=== PATIENT | female | born 1980 | race African-American/Black ===

== ENCOUNTER 2024-08-21 18:42 | Emergency (ER) | payer MEDICAID ==
[~2024-08-21] VITALS: Ht 177.8 cm; Wt 82.0 kg
[2024-08-21 18:44] VITALS: O2SAT 100
[2024-08-21 19:18] VITALS: BP 131/90; TEMP 38.4
[2024-08-21] MEDS ORDERED: METHYLPREDNISOLONE 40MG/ML INJ IV ONE (21:45)
[2024-08-21] MEDS ORDERED: METHYLPREDNISOLONE SOD SUCC 125MG/2ML (ACT-O-VIAL) IV NR (21:45)
[2024-08-21 23:43] VITALS: PULSE 123; RESP 18; O2SAT 98
[2024-08-21] MEDS: IPRATROPIUM/ALBUTEROL 0.5-3(2.5)MG/3ML NEB HHN ONE (23:43)
[2024-08-22] MEDS: ACETAMINOPHEN 500MG TABLET PO ONE
[2024-08-22] MEDS ORDERED: PRED10TA23 MT (00:02)
[2024-08-22] MEDS: METHYLPREDNISOLONE SOD SUCC 125MG/2ML (ACT-O-VIAL) IM NR (00:45)
[2024-08-22] MEDS: ACETAMINOPHEN 500MG TABLET PO NR (00:45)
== END 2024-08-22 02:53 | disposition home or self-care (01) ==
LOC: ER 18:52
DX: J45.901 Unspecified asthma with (acute) exacerbation (principal); I10 Essential (primary) hypertension; Z79.52 Long term (current) use of systemic steroids; Z98.890 Other specified postprocedural states
CPT/HCPCS: 71045; 94640; 99283; 96372; Z7610 ×3; J2919; J2920